=== PATIENT | male | born 1990 | race Caucasian/White ===

== ENCOUNTER 2017-12-14 13:48 | Observation (INO) | payer SELFPAY ==
[2017-12-14] MEDS ORDERED: Albuterol/Ipratropium 3.0-0.5 MG/3 ML Neb Soln NEB ONE ×2 (13:53→14:50)
[2017-12-14] MEDS ORDERED: Sodium Chloride 0.9% 10 ML Syringe FLUSH PRN ×2 (14:04→15:08)
[2017-12-14] MEDS ORDERED: Sodium Chloride 0.9% 2.5 ML Syringe FLUSH PRN ×2 (14:04→15:08)
[2017-12-14] MEDS ORDERED: methylPREDNISolone Sodium Succinate 125 MG/2 ML SDV IVPUSH ONE (14:04)
[2017-12-14] MEDS ORDERED: Sodium Chloride 0.9% 1,000 ML IV ONE (14:04)
--- NOTE | 2017-12-14 14:06 | EDM.PDOC ---
ED HPI GENERAL MEDICAL PROBLEM - General Chief Complaint: Respiratory Problem Stated Complaint: ASTHMA ATTACK Time Seen by Provider: 12/14/17 13:53 Source of Information: Reports: Patient History Limitations: Reports: No Limitations - History of Present Illness INITIAL COMMENTS - FREE TEXT/NARRATIVE: History of present illness: []Agent is back for his third ER visit in a week for an asthma exacerbation. He denies any fevers he has been on steroids and using inhalers without success at home. Review of systems: As per history of present illness and below otherwise all systems reviewed and negative. Past medical history: As per history of present illness and as reviewed below otherwise noncontributory. Surgical history: As per history of present illness and as reviewed below otherwise noncontributory. Social history: No reported history of drug or alcohol abuse. Family history: As per history of present illness and as reviewed below otherwise noncontributory. Physical exam: General: Well developed, well nourished in NAD HEENT: Atraumatic, normocephalic, pupils reactive, negative for conjunctival pallor or scleral icterus, mucous membranes moist, throat clear, neck supple, nontender, trachea midline. Lungs: Clear to auscultation, breath sounds equal bilaterally, chest nontender. Heart: S1S2, regular, negative for clicks, rubs, or JVD. Abdomen: Soft, nondistended, nontender. Negative for masses or hepatosplenomegaly. Negative for costovertebral tenderness. Pelvis: Stable nontender. Genitourinary: Deferred. Rectal: Deferred. Extremities: Atraumatic, negative for cords or calf pain. Neurovascular unremarkable. Neuro: Awake, alert, oriented. Cranial nerves II through XII unremarkable. Cerebellum unremarkable. Motor and sensory unremarkable throughout. Exam nonfocal. Skin:warm and dry Diagnostics: Chest x-ray negative, CBC negative, history show a CO2 of 25 and a creatinine 1.5. Therapeutics: IV hydration, soluMedrol DuoNeb's ED Course: Unremarkable Impression: Asthma exacerbation persistent and intractable Prescriptions: Plan: Admit for nebs and further treatment. Definitive disposition and diagnosis as appropriate pending reevaluation and review of above. - Related Data Allergies Allergy/AdvReac Type Severity Reaction Status Date / Time erythromycin base Allergy Nausea and Verified 12/14/17 13:53 [Erythromycin Base] Vomiting Home Meds: Home Meds Cetirizine HCl/Pseudoephedrine [ZyrTEC-D] 1 tab PO BID PRN 12/18/13 [History] Albuterol/Ipratropium [Combivent Respimat] 2 puff IH Q4HR PRN #1 aer.w.adap 12/22 [Rx] Budesonide/Formoterol Fumarate [Symbicort 80-4.5 Mcg Inhaler] 2 puff IH BID #1 inhaler 12/12/17 [Rx] Past Medical History HEENT History: Reports: Allergic Rhinitis, None Cardiovascular History: Reports: None Respiratory History: Reports: Asthma Gastrointestinal History: Reports: None Genitourinary History: Reports: None Musculoskeletal History: Reports: None Neurological History: Reports: None Psychiatric History: Reports: None Endocrine/Metabolic History: Reports: None Hematologic History: Reports: None Immunologic History: Reports: None Oncologic (Cancer) History: Reports: None Dermatologic History: Reports: None - Past Surgical History Head Surgeries/Procedures: Reports: None Cardiovascular Surgical History: Reports: None Respiratory Surgical History: Reports: None GI Surgical History: Reports: None Male Surgical History: Reports: None Endocrine Surgical History: Reports: None Neurological Surgical History: Reports: None Musculoskeletal Surgical History: Reports: None Oncologic Surgical History: Reports: None Dermatological Surgical History: Reports: None Social & Family History - Family History Family Medical History: Noncontributory - Tobacco Use Smoking Status *Q: Never Smoker - Caffeine Use Caffeine Use: Reports: Energy Drinks - Recreational Drug Use Recreational Drug Use: No ED ROS GENERAL - Review of Systems Review Of Systems: ROS reveals no pertinent complaints other than HPI. ED EXAM, GENERAL - Physical Exam Exam: See Below (See history of present illness) Course - Vital Signs Last Recorded V/S: Last Vital Signs Temp 97.0 F 12/14/17 13:51 Pulse 110 H 12/14/17 13:51 Resp 26 H 12/14/17 13:51 BP 125/73 12/14/17 13:51 Pulse Ox 98 12/14/17 13:51 - Orders/Labs/Meds Orders: Active Orders 24 hr Category Date Time Status Patient Status [ADT] Stat ADT 12/14/17 15:06 Ordered RT Aerosol Therapy [RC] ASDIRECTED Care 12/14/17 13:53 Active RT Aerosol Therapy [RC] ASDIRECTED Care 12/14/17 14:50 Active Chest 1V Frontal [CR] Stat Exams 12/14/17 14:04 Taken Sodium Chloride 0.9% [Saline Flush] Med 12/14/17 14:04 Active 10 ml FLUSH ASDIRECTED PRN Sodium Chloride 0.9% [Saline Flush] Med 12/14/17 14:04 Active 2.5 ml FLUSH ASDIRECTED PRN Saline Lock Insert [OM.PC] Stat Oth 12/14/17 14:03 Ordered Medication Orders Sodium Chloride (Saline Flush) 10 ml FLUSH ASDIRECTED PRN PRN Reason: Keep Vein Open Sodium Chloride (Saline Flush) 2.5 ml FLUSH ASDIRECTED PRN PRN Reason: Keep Vein Open Labs: Laboratory Tests 12/14/17 12/14/17 Range/Units 14:15 14:15 WBC 10.03 (4.0-11.0) K/uL RBC 5.17 (4.50-5.90) M/uL Hgb 15.9 (13.0-17.0) g/dL Hct 45.7 (38.0-50.0) % MCV 88.4 (80.0-98.0) fL MCH 30.8 (27.0-32.0) pg MCHC 34.8 (31.0-37.0) g/dL RDW Std Deviation 42.3 (28.0-62.0) fl RDW Coeff of Lisandra 13 (11.0-15.0) % Plt Count 320 (150-400) K/uL MPV 9.70 (7.40-12.00) fL Neut % (Auto) 56.7 (48.0-80.0) % Lymph % (Auto) 30.7 (16.0-40.0) % [place] % (Auto) 7.4 (0.0-15.0) % Eos % (Auto) 4.8 (0.0-7.0) % Baso % (Auto) 0.4 (0.0-1.5) % Neut # (Auto) 5.7 (1.4-5.7) K/uL Lymph # (Auto) 3.1 H (0.6-2.4) K/uL [place] # (Auto) 0.7 (0.0-0.8) K/uL Eos # (Auto) 0.5 (0.0-0.7) K/uL Baso # (Auto) 0.0 (0.0-0.1) K/uL Nucleated RBC % 0.0 /100WBC Nucleated RBCs # 0 K/uL Sodium 136 (136-148) mmol/L Potassium 3.6 (3.5-5.1) mmol/L Chloride 100 (98-107) mmol/L Carbon Dioxide 20.4 L (21.0-32.0) mmol/L BUN 17 (7.0-18.0) mg/dL Creatinine 1.5 H (0.8-1.3) mg/dL Est Cr Clr Drug Dosing 70.30 mL/min Estimated GFR (MDRD) 55.3 ml/min Glucose 134 H (74-106) mg/dL Calcium 9.3 (8.5-10.1) mg/dL Magnesium 2.2 (1.8-2.4) mg/dL Total Bilirubin 0.8 (0.2-1.0) mg/dL AST 22 (15-37) IU/L ALT 34 (14-63) IU/L Alkaline Phosphatase 67 (46-116) U/L Total Protein 8.1 (6.4-8.2) g/dL Albumin 4.4 (3.4-5.0) g/dL Globulin 3.7 H (2.0-3.5) g/dL Albumin/Globulin Ratio 1.2 L (1.3-2.8) Meds: Medications Generic Name Dose Route Start Last Admin Trade Name Freq PRN Reason Stop Dose Admin Sodium Chloride 10 ml 12/14/17 14:04 Saline Flush FLUSH ASDIRECTED PRN Keep Vein Open Sodium Chloride 2.5 ml 12/14/17 14:04 Saline Flush FLUSH ASDIRECTED PRN Keep Vein Open Discontinued Medications Generic Name Dose Route Start Last Admin Trade Name Freq PRN Reason Stop Dose Admin Albuterol/Ipratropium 3 ml 12/14/17 13:53 12/14/17 14:09 Duoneb 3.0-0.5 Mg/3 Ml NEB 12/14/17 13:54 3 ml ONETIME ONE Administration Albuterol/Ipratropium 3 ml 12/14/17 14:50 Duoneb 3.0-0.5 Mg/3 Ml NEB 12/14/17 14:51 ONETIME ONE Sodium Chloride 1,000 mls @ 999 mls/hr 12/14/17 14:04 12/14/17 14:28 Normal Saline IV 12/14/17 15:04 999 mls/hr .Bolus ONE Administration Methylprednisolone Sodium Succinate 125 mg 12/14/17 14:04 12/14/17 14:27 Solu-Medrol IVPUSH 12/14/17 14:05 125 mg ONETIME ONE Administration Departure - Departure Time of Disposition: 15:09 Disposition: Refer to Observation Condition: Fair Clinical Impression: Asthma exacerbation Qualifiers: Asthma severity: severe Asthma persistence: persistent Qualified Code(s): J45.51 - Severe persistent asthma with (acute) exacerbation - Discharge Information *PRESCRIPTION DRUG MONITORING PROGRAM REVIEWED*: No Referrals: PCP,None [Primary Care Provider] - Forms: ED Department Discharge - My Orders Last 24 Hours: My Active Orders 12/14/17 13:53 RT Aerosol Therapy [RC] ASDIRECTED 12/14/17 14:03 Saline Lock Insert [OM.PC] Stat 12/14/17 14:04 Chest 1V Frontal [CR] Stat Sodium Chloride 0.9% [Saline Flush] 10 ml FLUSH ASDIRECTED PRN Sodium Chloride 0.9% [Saline Flush] 2.5 ml FLUSH ASDIRECTED PRN 12/14/17 14:50 RT Aerosol Therapy [RC] ASDIRECTED 12/14/17 15:06 Patient Status [ADT] Stat - Assessment/Plan Last 24 Hours: My Active Orders 12/14/17 13:53 RT Aerosol Therapy [RC] ASDIRECTED 12/14/17 14:03 Saline Lock Insert [OM.PC] Stat 12/14/17 14:04 Chest 1V Frontal [CR] Stat Sodium Chloride 0.9% [Saline Flush] 10 ml FLUSH ASDIRECTED PRN Sodium Chloride 0.9% [Saline Flush] 2.5 ml FLUSH ASDIRECTED PRN 12/14/17 14:50 RT Aerosol Therapy [RC] ASDIRECTED 12/14/17 15:06 Patient Status [ADT] Stat
[2017-12-14] MEDS ORDERED: Acetaminophen 325 MG Tab PO PRN (15:08)
[2017-12-14] MEDS ORDERED: Ondansetron 4 MG/2 ML SDV IVPUSH PRN (15:08)
[2017-12-14] MEDS ORDERED: Ibuprofen 200 MG Tab PO PRN (15:08)
[2017-12-14] MEDS ORDERED: Sodium Chloride 0.9% 1,000 ML IV SCH (15:15)
--- NOTE | 2017-12-14 15:20 | CR ---
EXAMINATION: Portable chest radiograph. HISTORY: Shortness of breath. FINDINGS: The trachea is midline. The cardiomediastinal silhouette is within normal limits. No pulmonary infilt rates, effusions or pneumothorax. Osseous structures appear unremarkable. IMPRESSION: No acute cardiopulmonary process.
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
[2017-12-14] MEDS: Albuterol/Ipratropium 3.0-0.5 MG/3 ML Neb Soln NEB SCH ×2 (16:31→18:15)
[2017-12-14] MEDS: methylPREDNISolone Sodium Succinate 40 MG/1 ML SDV IVPUSH SCH ×2 (16:31→20:38)
[2017-12-14] MEDS: Enoxaparin 40 MG/0.4 ML Syringe SUBCUT SCH (16:45)
[2017-12-14] MEDS: Albuterol/Ipratropium 3.0-0.5 MG/3 ML Neb Soln NEB PRN ×2 (19:46→22:25)
[2017-12-15] MEDS: Albuterol/Ipratropium 3.0-0.5 MG/3 ML Neb Soln NEB PRN ×5 (02:26→20:52)
[2017-12-15] MEDS: methylPREDNISolone Sodium Succinate 40 MG/1 ML SDV IVPUSH SCH (02:26)
[2017-12-15 06:33] LABS: CHLORIDE,CL 103 mmol/L (98-107); SODIUM,NA 140 mmol/L (136-148)
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
[2017-12-15] MEDS ORDERED: methylPREDNISolone Sodium Succinate 125 MG/2 ML SDV IVPUSH SCH (15:15)
[2017-12-15] MEDS: methylPREDNISolone Sodium Succinate 125 MG/2 ML SDV IVPUSH SCH (15:22)
[2017-12-15] MEDS: Enoxaparin 40 MG/0.4 ML Syringe SUBCUT SCH (15:22)
[2017-12-16] MEDS: methylPREDNISolone Sodium Succinate 125 MG/2 ML SDV IVPUSH SCH (04:18)
[2017-12-16 06:37] LABS: CHLORIDE,CL 104 mmol/L (98-107); SODIUM,NA 140 mmol/L (136-148)
--- NOTE | 2017-12-16 11:46 | PCM.DCSUM1 ---
Discharge Summary - Hospital Course Free Text/Narrative:: Discharge Summary Date of admission: 12/14/2017 Date of discharge: 12/16/2017 Admitting diagnosis: #1. Acute exacerbation of asthma in the setting of lung [place] #2. #3. #4. #5. Discharge diagnoses: #1. Asthma symptoms under control #2. #3. #4. #5. Consultations: None Procedures: None Hospitalization course: Patient was placed on DuoNeb therapy every 2 hours as needed per respiratory therapy, he was also started on Solu-Medrol initially 60 mg every 6 hours and was transitioned on the next day of admission to 60 mg every 12 hours. His chest remained tight and uncomfortable on inspiration and as a result the patient was kept in the hospital on day 2 of admission, in the morning on day 3 of admission the patient's chest tightness had significantly improved, he was able to breathe without much difficulty, he still had mild wheezing but it had significantly improved upon admission and the patient stated that he would like to go home. Patient was sent home on inhaler and a prednisone burst with taper and told to follow-up with primary care physician. Disposition on discharge: Home Condition on discharge: Stable Diagnosis: Stroke: No - Discharge Data Discharge Date: 12/16/17 Discharge Disposition: Home, Self-Care 01 Condition: Good - Discharge Diagnosis/Problem(s) (1) Asthma exacerbation SNOMED Code(s): 107093175 ICD Code: J45.901 - UNSPECIFIED ASTHMA WITH (ACUTE) EXACERBATION Status: Acute Qualifiers: Asthma severity: severe Asthma persistence: persistent Qualified Code(s) : J45.51 - Severe persistent asthma with (acute) exacerbation (2) Acute asthma exacerbation SNOMED Code(s): 807809054 ICD Code: J45.901 - UNSPECIFIED ASTHMA WITH (ACUTE) EXACERBATION Status: Acute Qualifiers: Asthma severity: moderate Asthma persistence: persistent Qualified Code(s ): J45.41 - Moderate persistent asthma with (acute) exacerbation - Patient Summary/Data Consults: Consultations 12/14/17 15:08 Respiratory Care Assess and Treatment [CONS] Routine - Discharge Plan *PRESCRIPTION DRUG MONITORING PROGRAM REVIEWED*: No Prescriptions/Med Rec: Albuterol/Ipratropium [Combivent Respimat] 2 puff IH Q4HR PRN #1 aer.w.adap PRN Reason: Shortness Of Breath predniSONE [Prednisone] 20 mg PO BID #13 tablet Home Medications: Home Meds Cetirizine HCl/Pseudoephedrine [ZyrTEC-D] 1 tab PO BID PRN 12/18/13 [History] Budesonide/Formoterol Fumarate [Symbicort 80-4.5 Mcg Inhaler] 2 puff IH BID #1 inhaler 12/12/17 [Rx] Albuterol/Ipratropium [Combivent Respimat] 2 puff IH Q4HR PRN #1 aer.w.adap 04/23 [Rx] predniSONE [Prednisone] 20 mg PO BID #13 tablet 12/16/17 [Rx] Patient Handouts: Asthma, Adult, [id number], Albuterol; Ipratropium inhalation aerosol, Prednisone tablets Referrals: Anastacio Guadarrama MD [Resident] - (Please call on Sunday for follow-up appointment in 1 week.) - Discharge Summary/Plan Comment DC Time >30 min.: No - Patient Data Vitals - Most Recent: Last Vital Signs Temp 36.3 C 12/16/17 08:00 Pulse 70 12/16/17 08:00 Resp 18 12/16/17 08:00 BP 113/66 12/16/17 08:00 Pulse Ox 95 12/16/17 08:00 Weight - Most Recent: 77.111 kg I&O - Last 24 hours: Intake & Output 12/15/17 12/16/17 12/16/17 22:59 06:59 14:59 Intake Total 600 700 Output Total 400 Balance 600 300 Lab Results - Last 24 hrs: Laboratory Results - last 24 hr 12/16/17 12/16/17 Range/Units 06:00 06:00 WBC 11.54 H (4.0-11.0) K/uL RBC 4.94 (4.50-5.90) M/uL Hgb 14.7 (13.0-17.0) g/dL Hct 43.9 (38.0-50.0) % MCV 88.9 (80.0-98.0) fL MCH 29.8 (27.0-32.0) pg MCHC 33.5 (31.0-37.0) g/dL RDW Std Deviation 42.9 (28.0-62.0) fl RDW Coeff of Lisandra 13 (11.0-15.0) % Plt Count 310 (150-400) K/uL MPV 9.70 (7.40-12.00) fL Neut % (Auto) 84.4 H (48.0-80.0) % Lymph % (Auto) 9.2 L (16.0-40.0) % [place] % (Auto) 5.6 (0.0-15.0) % Eos % (Auto) 0.8 (0.0-7.0) % Baso % (Auto) 0.0 (0.0-1.5) % Neut # (Auto) 9.7 H (1.4-5.7) K/uL Lymph # (Auto) 1.1 (0.6-2.4) K/uL [place] # (Auto) 0.7 (0.0-0.8) K/uL Eos # (Auto) 0.1 (0.0-0.7) K/uL Baso # (Auto) 0.0 (0.0-0.1) K/uL Nucleated RBC % 0.0 /100WBC Nucleated RBCs # 0 K/uL Sodium 140 (136-148) mmol/L Potassium 4.0 (3.5-5.1) mmol/L Chloride 104 (98-107) mmol/L Carbon Dioxide 28.4 (21.0-32.0) mmol/L BUN 19 H (7.0-18.0) mg/dL Creatinine 1.2 (0.8-1.3) mg/dL Est Cr Clr Drug Dosing 87.88 mL/min Estimated GFR (MDRD) > 60.0 ml/min Glucose 122 H (74-106) mg/dL Calcium 9.1 (8.5-10.1) mg/dL Med Orders - Current: Current Medications Acetaminophen (Tylenol) 650 mg PO Q4H PRN PRN Reason: Pain (Mild 1-3)/fever Albuterol/Ipratropium (Duoneb 3.0-0.5 Mg/3 Ml) 3 ml NEB Q2H PRN PRN Reason: Wheezing Last Admin: 12/15/17 20:52 Dose: 3 ml Enoxaparin Sodium (Lovenox) 40 mg SUBCUT Q24H [facility]AVE[facility] Last Admin: 12/15/17 15:22 Dose: Not Given Ibuprofen (Motrin) 200 mg PO Q6H PRN PRN Reason: Pain (mild 1-3) Methylprednisolone Sodium Succinate (Solu-Medrol) 60 mg IVPUSH Q12H [facility] Last Admin: 12/16/17 04:18 Dose: 60 mg Ondansetron HCl (Zofran) 4 mg IVPUSH Q4H PRN PRN Reason: Nausea/Vomiting Sodium Chloride (Saline Flush) 10 ml FLUSH ASDIRECTED PRN PRN Reason: Keep Vein Open Sodium Chloride (Saline Flush) 2.5 ml FLUSH ASDIRECTED PRN PRN Reason: Keep Vein Open Sodium Chloride (Saline Flush) 10 ml FLUSH ASDIRECTED PRN PRN Reason: Keep Vein Open Sodium Chloride (Saline Flush) 2.5 ml FLUSH ASDIRECTED PRN PRN Reason: Keep Vein Open Discontinued Medications Albuterol/Ipratropium (Duoneb 3.0-0.5 Mg/3 Ml) 3 ml NEB ONETIME ONE Stop: 12/14/17 13:54 Last Admin: 12/14/17 14:09 Dose: 3 ml Albuterol/Ipratropium (Duoneb 3.0-0.5 Mg/3 Ml) 3 ml NEB ONETIME ONE Stop: 12/14/17 14:51 Last Admin: 12/14/17 15:13 Dose: 3 ml Albuterol/Ipratropium (Duoneb 3.0-0.5 Mg/3 Ml) 3 ml NEB Q4HRRT [facility] Last Admin: 12/14/17 18:15 Dose: 3 ml Sodium Chloride (Normal Saline) 1,000 mls @ 999 mls/hr IV .Bolus ONE Stop: 12/14/17 15:04 Last Admin: 12/14/17 14:28 Dose: 999 mls/hr Sodium Chloride (Normal Saline) 1,000 mls @ 125 mls/hr IV ASDIRECTED [facility] Methylprednisolone Sodium Succinate (Solu-Medrol) 125 mg IVPUSH ONETIME ONE Stop: 12/14/17 14:05 Last Admin: 12/14/17 14:27 Dose: 125 mg Methylprednisolone Sodium Succinate (Solu-Medrol) 60 mg IVPUSH Q6H [facility] Last Admin: 12/15/17 02:26 Dose: 60 mg Methylprednisolone Sodium Succinate (Solu-Medrol) 60 mg IVPUSH Q6H [facility]
[2017-12-16 11:58] VITALS: BP 125/73
== END 2017-12-16 12:12 | disposition home or self-care (01) ==
LOC: MW.ED 13:48 → MW.MS 15:31
PROVIDERS: ADMIT Internal Medicine; ATTEND Internal Medicine
DX: J45.51 Severe persistent asthma with (acute) exacerbation (principal); T59.811A Toxic effect of smoke, accidental (unintentional), initial encounter; J70.5 Respiratory conditions due to smoke inhalation; F17.220 Nicotine dependence, chewing tobacco, uncomplicated; N17.9 Acute kidney failure, unspecified; Z88.1 Allergy status to other antibiotic agents
CPT/HCPCS: 36415; 71045; 80048; 80053; 83735; 85025; 94640; 96361; 96372; 96374; 96376; 99285; G0378; J1650; J2920; J2930; J7040; 99282; J7620-GY

== ENCOUNTER 2019-06-19 17:50 | Emergency (ER) | payer OTHER ==
[~2019-06-19 17:50] MED LIST: Albuterol/Ipratropium 3.0-0.5 MG/3 ML Neb Soln NEB ONE
[2019-06-19] MEDS ORDERED: Albuterol/Ipratropium 3.0-0.5 MG/3 ML Neb Soln NEB ONE (17:58)
[2019-06-19] MEDS ORDERED: predniSONE 20 MG Tab PO ONE (17:58)
--- NOTE | 2019-06-19 18:04 | EDM.PDOC ---
ED HPI GENERAL MEDICAL PROBLEM - General Chief Complaint: Asthma Stated Complaint: ASTHMA ATTACK Time Seen by Provider: 06/19/19 17:55 Source of Information: Reports: Patient History Limitations: Reports: No Limitations - History of Present Illness INITIAL COMMENTS - FREE TEXT/NARRATIVE: Patient is a 28-year-old male who is complaining of having an asthma exacerbation which started last night but is gotten worse today. He does not feel short of breath at rest but he does with exertion. Patient does have a nonproductive cough. He denies any fever or shaking chills. He denies any swelling to his ankles or calf. Patient has been hospitalized in the past for his asthma though not for many years. He does have a nebulizer at home. He denies having any bloody or tarry looking stools. He denies cigarette smoker and does not drink alcohol regularly. Duration: Day(s): (1) Location: Reports: Chest Quality: Reports: Same as Previous Episode Severity: Mild Improves with: Reports: Medication Worsens with: Reports: Movement Context: Reports: Activity Associated Symptoms: Reports: No Other Symptoms - Related Data Allergies Allergy/AdvReac Type Severity Reaction Status Date / Time erythromycin base Allergy Nausea and Verified 06/19/19 17:55 [Erythromycin Base] Vomiting Home Meds: Home Meds Cetirizine HCl/Pseudoephedrine [ZyrTEC-D] 1 tab PO BID PRN 12/18/13 [History] Budesonide/Formoterol Fumarate [Symbicort 80-4.5 MCG] 2 puff IH BID #1 inhaler 12/12/17 [Rx] Albuterol/Ipratropium [Combivent Respimat] 2 puff IH Q4HR PRN #1 aer.w.adap 04/23 [Rx] Past Medical History HEENT History: Reports: Allergic Rhinitis, None Cardiovascular History: Reports: None Respiratory History: Reports: Asthma Gastrointestinal History: Reports: None Genitourinary History: Reports: None Musculoskeletal History: Reports: None Neurological History: Reports: None Psychiatric History: Reports: None Endocrine/Metabolic History: Reports: None Hematologic History: Reports: None Immunologic History: Reports: None Oncologic (Cancer) History: Reports: None Dermatologic History: Reports: None - Infectious Disease History Infectious Disease History: Reports: Chicken Pox - Past Surgical History Head Surgeries/Procedures: Reports: None Cardiovascular Surgical History: Reports: None Respiratory Surgical History: Reports: None GI Surgical History: Reports: None Male Surgical History: Reports: None Endocrine Surgical History: Reports: None Neurological Surgical History: Reports: None Musculoskeletal Surgical History: Reports: None Oncologic Surgical History: Reports: None Dermatological Surgical History: Reports: None Social & Family History - Family History Family Medical History: Noncontributory - Tobacco Use Smoking Status *Q: Never Smoker - Caffeine Use Caffeine Use: Reports: Coffee, Energy Drinks - Recreational Drug Use Recreational Drug Use: No ED ROS GENERAL - Review of Systems Review Of Systems: Comprehensive ROS is negative, except as noted in HPI. ED EXAM, GENERAL - Physical Exam Exam: See Below Exam Limited By: No Limitations General Appearance: Alert, No Apparent Distress Head: Atraumatic Neck: Normal Inspection Respiratory/Chest: No Respiratory Distress, Lungs Clear, Chest Non-Tender, Wheezing. No: Accessory Muscle Use, Retractions Cardiovascular: Regular Rate, Rhythm GI/Abdominal: Normal Bowel Sounds, Soft, Non-Tender Extremities: Normal Inspection, No Pedal Edema Neurological: Alert, Oriented Psychiatric: Normal Affect Skin Exam: Warm, Dry Course - Vital Signs Text/Narrative:: Patient is feeling better after prednisone and DuoNeb. Does like he has some mucus in the back of his throat. His lungs are clear to auscultation without wheezing. His O2 sat is in the high 90s.. Last Recorded V/S: Last Vital Signs Temp 37.1 C 06/19/19 17:53 Pulse 99 06/19/19 18:31 Resp 16 06/19/19 18:31 BP 113/65 06/19/19 17:53 Pulse Ox 97 06/19/19 18:31 - Orders/Labs/Meds Orders: Active Orders 24 hr Category Date Time Status RT Aerosol Therapy [RC] ASDIRECTED Care 06/19/19 17:50 Active RT Aerosol Therapy [RC] ASDIRECTED Care 06/19/19 17:59 Active Meds: Medications Discontinued Medications Generic Name Dose Route Start Last Admin Trade Name Freq PRN Reason Stop Dose Admin Albuterol/Ipratropium 3 ml 06/19/19 17:50 06/19/19 17:59 Duoneb 3.0-0.5 Mg/3 Ml NEB 06/19/19 17:51 3 ml ONETIME ONE Administration Albuterol/Ipratropium 3 ml 06/19/19 17:58 06/19/19 18:28 Duoneb 3.0-0.5 Mg/3 Ml NEB 06/19/19 17:59 Not Given ONETIME ONE Prednisone 60 mg 06/19/19 17:58 06/19/19 18:28 Prednisone PO 06/19/19 17:59 60 mg ONETIME ONE Administration Departure - Departure Time of Disposition: 19:18 Disposition: Home, Self-Care 01 Condition: Good Clinical Impression: Asthma - Discharge Information Instructions: Asthma, Adult Forms: ED Department Discharge Additional Instructions: Prednisone and DuoNeb as prescribed. Follow-up with PCP if not improving. Return to ER if worse. Care Plan Goals: The following information is given to patients seen in the emergency department who are being discharged to home. This information is to outline your options for follow-up care. We provide all patients seen in our emergency department with a follow-up referral. The need for follow-up, as well as the timing and circumstances, are variable depending upon the specifics of your emergency department visit. If you don't have a primary care physician on staff, we will provide you with a referral. We always advise you to contact your personal physician following an emergency department visit to inform them of the circumstance of the visit and for follow-up with them and/or the need for any referrals to a consulting specialist. The emergency department will also refer you to a specialist when appropriate. This referral assures that you have the opportunity for follow-up care with a specialist. All of these measure are taken in an effort to provide you with optimal care, which includes your follow-up. Under all circumstances we always encourage you to contact your private physician who remains a resource for coordinating your care. When calling for follow-up care, please make the office aware that this follow-up is from your recent emergency room visit. If for any reason you are refused follow-up, please contact the [facility] Emergency Department at and asked to speak to the emergency department charge nurse. Sepsis Event Note - Evaluation Sepsis Screening Result: No Definite Risk - Focused Exam Vital Signs: Vital Signs Temp Pulse Resp BP Pulse Ox 06/19/19 18:31 99 16 97 06/19/19 17:53 37.1 C 116 H 24 H 113/65 100 Date Exam was Performed: 06/19/19 Time Exam was Performed: 19:17 - My Orders Last 24 Hours: My Active Orders 06/19/19 17:50 RT Aerosol Therapy [RC] ASDIRECTED 06/19/19 17:59 RT Aerosol Therapy [RC] ASDIRECTED - Assessment/Plan Last 24 Hours: My Active Orders 06/19/19 17:50 RT Aerosol Therapy [RC] ASDIRECTED 06/19/19 17:59 RT Aerosol Therapy [RC] ASDIRECTED
[2019-06-19 19:39] VITALS: BP 110/39; PULSE 102
== END 2019-06-19 19:30 | disposition home or self-care (01) ==
LOC: MW.ED 17:50
DX: J45.909 Unspecified asthma, uncomplicated (principal); Z88.1 Allergy status to other antibiotic agents
CPT/HCPCS: 94640; 99284; A9270; J7620-GY